=== PATIENT | female | born 2000 | race Caucasian/White ===

== ENCOUNTER 2022-09-12 23:44 | Emergency (ER) | payer OTHER ==
[~2022-09-12] VITALS: Ht 165.1 cm; Wt 72.6 kg
[2022-09-12 23:44] VITALS: BP 130/80
--- NOTE | 2022-09-12 23:46 | NUR ---
PT BROUGHT TO BED 5 VIA [facility]
[2022-09-12] MEDS ORDERED: ONDANSETRON 4 MG/2 ML VIAL IVP ONE (23:50)
[2022-09-12] MEDS ORDERED: NACL 0.9% 2,000 ML IV ONE (23:50)
--- NOTE | 2022-09-12 23:50 | NUR ---
BIBA WITH C/O ETOH FROM [facility] IN [place]. PT IS NON-VERBAL, RESPONDS TO PAINFUL STIMULI
--- NOTE | 2022-09-13 01:39 | NUR ---
NOAH PLASENCIA FATHER CALLED [phone] INFORM WHEN BEING DISCHARGED
--- NOTE | 2022-09-13 04:38 | NUR ---
CALL TO PTS FAMILY RE: DISCHARGE
--- NOTE | 2022-09-13 04:40 | NUR ---
Patient discharged with v/s stable. Written and verbal after care instructions given and explained. Patient verbalized understanding. Ambulatory with steady gait. All questions addressed prior to discharge. Advised to follow up with PMD.
== END 2022-09-13 04:40 | disposition home or self-care (01) ==
LOC: MED 23:44
DX: F10.129 Alcohol abuse with intoxication, unspecified (principal); R40.4 Transient alteration of awareness; Y90.9 Presence of alcohol in blood, level not specified
CPT/HCPCS: 96361; 96374; 99283; J2405; J7030